=== PATIENT | female | born 1995 | race Caucasian/White ===

== ENCOUNTER 2017-04-23 09:16 | Emergency (ER) | payer MEDICAID, OTHER ==
[2017-04-23 09:44] LABS: BILIRUBIN,URINE NEGATIVE (NEGATIVE); GLUCOSE, URINE (UA) NEGATIVE (NEGATIVE); KETONES,URINE (UA) NEGATIVE (NEGATIVE); LEUKOCYTE ESTERASE, URINE TRACE (NEGATIVE); NITRITE,URINE NEGATIVE (NEGATIVE); OCCULT BLOOD,URINE NEGATIVE (NEGATIVE); PH,URINE 7.5 PH (5.0-7.5); PROTEIN,URINE NEGATIVE (NEGATIVE); UROBILINOGEN,URINE 0.2 (NORMAL) E.U./dL (NORMAL)
[2017-04-23 09:59] LABS: CLARITY,URINE HAZY (CLEAR); RBC,URINE 0-5 /HPF (0-5)
[2017-04-23 10:00] LABS: BACTERIA,URINE Many /HPF (None Seen); SQUAMOUS EPITHELIAL CELL,UR MANY Squamous (<= Few); WBC CLUMPS,URINE PRESENT
[2017-04-23] MEDS ORDERED: oxyCOD/ACETAMIN 5 MG/325 MG TABLET PO STA (10:06)
[2017-04-23] MEDS ORDERED: LIDOCAINE 1% 2 ML VIAL SUBQ ONE (10:06)
[2017-04-23] MEDS ORDERED: metroNIDAZOLE 250 MG TABLET PO STA (10:06)
[2017-04-23] MEDS ORDERED: DOXYCYCLINE 100 MG TABLET PO STA (10:06)
[2017-04-23] MEDS ORDERED: cefTRIAXone 250 MG VIAL IM STA (10:06)
--- NOTE | 2017-04-23 10:08 | ED Physician Documentation ---
PD HPI FEMALE - Stated complaint Stated Complaint: FEMALE - Chief complaint Chief Complaint: UTI - History obtained from History obtained from: Patient - History of Present Illness Timing - onset: How many weeks ago (3) Timing - duration: Weeks (3) Timing - details: Abrupt onset Pain level max: 8 Pain level max: 8 Associated symptoms: Pelvic pain, Vaginal pain, Vaginal discharge. No: Fever Contributing factors: control (OCP). No: Similar symptoms before: Has not had sx before Recently seen: Not recently seen - Additional information Additional information: pelvic pain and discharge x 2 weeks. + changes in sexual partners, poss STD exposure. Review of Systems Constitutional: denies: Fever, Chills GI: denies: Nausea, Vomiting, Diarrhea : reports: Dysuria. denies: Frequency, Hesitancy, Now EGA Skin: denies: Rash Musculoskeletal: denies: Neck pain, Back pain Neurologic: denies: Headache PD PAST MEDICAL HISTORY - Past Medical History Past Medical History: No - Past Surgical History Ortho: Arthroscopic surgery - Present Medications Home Medications: Ambulatory Orders Medication Instructions Recorded Confirmed Doxycycline Hyclate 100 mg PO BID #20 capsule 04/23/17 Metronidazole [Flagyl] 500 mg PO BID #20 tablet 04/23/17 Oxycodone HCl/Acetaminophen 1 - 2 each PO Q6H PRN #10 tablet 04/23/17 [Percocet 5-325 mg Tablet] - Allergies Allergies/Adverse Reactions: Allergies Allergy/AdvReac Type Severity Reaction Status Date / Time No Known Drug Allergies Allergy Verified 04/23/17 09:26 - Social History Does the pt smoke?: No Smoking Status: Never smoker Does the pt drink ETOH?: No Does the pt have substance abuse?: No - Immunizations Immunizations are current?: Yes - POLST Patient has POLST: No PD ED PE NORMAL - Vitals Vital signs reviewed: Yes - General General: Alert and oriented X 3, No acute distress, Well developed/nourished - HEENT HEENT: Moist mucous membranes - Neck Neck: Supple, no meningeal sign - Cardiac Cardiac: RRR, Strong equal pulses - Respiratory Respiratory: No respiratory distress, Clear bilaterally - Abdomen Abdomen: Soft, Non tender, Non distended - Female Female : [employer] Employment present (Nasrin Curry RN), Other (R sided inguinal LAD, small, tender. Normal external exam otherwise. Thick white/yellow d/c from the OS and and on the vaginal plascencia. + CMT. +adnexal tenderness B. no masses.) - Back Back: No CVA TTP - Derm Derm: Warm and dry, No rash - Extremities Extremities: No deformity - Neuro Neuro: Alert and oriented X 3 - Psych Psych: Normal mood, Normal affect Results - Vitals Vitals: Vital Signs - 24 hr 04/23/17 04/23/17 09:21 11:35 Temperature 36.4 C L Heart Rate 78 74 Respiratory 14 14 Rate Blood Pressure 110/66 112/80 O2 Saturation 98 98 Oxygen O2 Source Room air - Labs Labs: Microbiology 04/23/17 10:00 Wet Prep - Final Genital - Cervix Laboratory Tests 04/23/17 04/23/17 09:30 09:30 Urine Color YELLOW Urine Clarity HAZY Urine pH 7.5 Ur Specific [place] 1.020 1.020 Urine Protein NEGATIVE Urine Glucose (UA) NEGATIVE Urine Ketones NEGATIVE Urine Occult Blood NEGATIVE Urine Nitrite NEGATIVE Urine Bilirubin NEGATIVE Urine Urobilinogen 0.2 (NORMAL) Ur Leukocyte Esterase TRACE H Urine RBC 0-5 Urine WBC >25 H Urine WBC Clumps PRESENT Ur Squamous Epith Cells MANY Squamous H Urine Bacteria Many H Ur Microscopic Review INDICATED Urine HCG, Qual NEGATIVE PD MEDICAL DECISION MAKING - ED course Complexity details: reviewed results, re-evaluated patient, considered differential, d/w patient ED course: Patient is a 21-year-old female who presents to the emergency department with what appears to be pelvic inflammatory disease. Given Rocephin here and will start on doxycycline and Flagyl. This should also cover the bacterial vaginitis. No evidence of tubo-ovarian abscess. No fever. No sepsis. Pain well controlled. Patient was counseled regarding the need for follow-up for further STD testing including HIV. Patient also counseled about the need to have her partner tested and treated. Patient counseled regarding signs and symptoms for which I believe and urgent re-evaluation would be necessary. Patient with good understanding of and agreement to plan and is comfortable going home at this time This document was made in part using voice recognition software. While efforts are made to proofread this document, sound alike and grammatical errors may occur. Departure - Departure Disposition: 01 Home, Self Care Clinical Impression: PID (acute pelvic inflammatory disease), Bacterial vaginitis Condition: Good Instructions: ED PID Follow-Up: your,doctor in 1 week [Other] Prescriptions: Doxycycline Hyclate 100 mg PO BID #20 capsule Metronidazole [Flagyl] 500 mg PO BID #20 tablet Oxycodone HCl/Acetaminophen [Percocet 5-325 mg Tablet] 1 - 2 each PO Q6H PRN # 10 tablet PRN Reason: pain Comments: Take all antibiotics until gone. Return if you worsen. Testing was sent for gonorrhea and chlamydia, though we are treating you for this based on your physical exam. You should follow-up with your doctor to have further STD testing informed including HIV. Your partner should also be tested. Will he will receive a phone call if your gonorrhea or Chlamydia testing is positive. Use condoms for sexual activity. Antibiotics may also decrease your effectiveness of your control, so use a backup method when on antibiotics. Do not drink alcohol or drive while on narcotic pain medicine. Note that many narcotic pain relievers also contain tylenol/acetaminophen. Please ensure that your total dose of acetaminophen from all sources does not exceed 3 grams (3000mg) per day. You may constipated on this medication, take a stool softener such as "Colace" twice a day while you are on it. Also recommend a [id number] laxative such as senna or MiraLAX any day that you do not have a bowel movement. If you received narcotic pain medication in the emergency department, do not drive or operate machinery for the next 24 hours. Discharge Date/Time: 04/23/17 11:58
[2017-04-23 10:09] LABS: HCG UR QUAL NEGATIVE
[2017-04-23 11:58] VITALS: BP 112/80
== END 2017-04-23 11:58 | disposition home or self-care (01) ==
LOC: ED 09:16
DX: N73.0 Acute parametritis and pelvic cellulitis (principal); N76.0 Acute vaginitis; B96.89 Other specified bacterial agents as the cause of diseases classified elsewhere
CPT/HCPCS: 81001; 81025; 87210; 87491; 87591; 96372; 99283; A9270; 81003; 87220